=== PATIENT | female | born 1990 | race Caucasian/White ===

== ENCOUNTER 2020-06-30 00:45 | Emergency (ER) | payer OTHER ==
[~2020-06-30] VITALS: Ht 160 cm; Wt 64.4 kg
[2020-06-30 00:59] VITALS: BP 131/91
[2020-06-30 02:34] LABS: Hepatitis B Surface Antibody Negative
[2020-06-30 03:24] LABS: Hepatitis B Surface Antigen Negative (Negative)
== END 2020-06-30 04:56 | disposition home or self-care (01) ==
LOC: ER 00:48
DX: S69.92XA Unspecified injury of left wrist, hand and finger(s), initial encounter (principal); X58.XXXA Exposure to other specified factors, initial encounter; Y93.89 Activity, other specified; Y92.89 Other specified places as the place of occurrence of the external cause; Y99.8 Other external cause status
CPT/HCPCS: 36415; 86703; 86706; 86803; 87340

== ENCOUNTER 2022-04-05 00:06 | Emergency (ER) | payer MEDICAID, OTHER ==
[~2022-04-05] VITALS: Ht 160 cm; Wt 56.8 kg
[2022-04-05] MEDS ORDERED: ALPRAZolam 0.5 MG TAB PO ONE (00:45)
[2022-04-05 00:57] LABS: Basophils # (auto) 0.2 10 ^3/uL (0-0.2); Basophils % (auto) 2.7 % (0.0-2.0); Eosinophils # (auto) 0.1 10 ^3/uL (0-0.8); Eosinophils % (auto) 1.5 % (0.0-7.0); Hematocrit 39.9 % (36.0-46.0); Hemoglobin 13.4 g/dL (12.2-16.2); Lymphocytes % (auto) 14.2 % (10.0-50.0); Mean Corpuscular Hemoglobin 30.4 pg (28.0-32.0); Mean Corpuscular Hgb Conc. 33.6 g/dL (32.0-36.0); Mean Corpuscular Volume 90.4 fL (80.0-100.0); Monocytes # (auto) 0.3 10 ^3/uL (0-1.3); Monocytes % (auto) 4.6 % (0.0-12.0); Neutrophils # (auto) 5.7 10 ^3/uL (1.6-8.6); Nucleated Red Blood Cells % 0.1 %; Red Blood Cells 4.42 10^6/uL (4.0-5.20); Red Cell Distribution Width 12.7 % (11.8-14.3); White Blood Cell 7.4 10^3/uL (4.4-10.8)
[2022-04-05] MEDS ORDERED: IOHEXOL 350 MG/ML 100ML IJ ONE (01:01)
[2022-04-05 01:15] LABS: Albumin 4.4 g/dL (3.4-5.0); Potassium 4.2 mmol/L (3.5-5.1)
[2022-04-05 01:18] LABS: Bilirubin, Total 0.5 mg/dL (0.2-1.0); Total Protein 7.4 g/dL (6.4-8.2)
[2022-04-05 01:58] LABS: INR 1.05 (0.9-1.15)
[2022-04-05] MEDS ORDERED: DexAMETHasone SOD PHOS 10MG/1ML VIAL INJ IV ONE (03:45)
[2022-04-05] MEDS ORDERED: ONDANSETRON HCL 4 MG/2 ML VIAL IV ONE (03:45)
[2022-04-05] MEDS ORDERED: OXYCODONE W/ ACETAMINOPHEN 5/325MG TABLET PO ONE (03:45)
[2022-04-05 04:00] VITALS: BP 124/80
[2022-04-05] MEDS ORDERED: diazePAM 5 MG TAB PO ONE (04:00)
[2022-04-05] MEDS ORDERED: PERCOT PO (04:03)
[2022-04-05] MEDS ORDERED: PRED20TA2 PO (04:03)
[2022-04-05] MEDS ORDERED: DIAZ5TAB PO (04:03)
[2022-04-05] MEDS ORDERED: ONDA-144 PO (04:03)
== END 2022-04-05 04:34 | disposition home or self-care (01) ==
LOC: EEVIPCON 00:06 → ER 00:09
DX: R07.89 Other chest pain (principal); M54.9 Dorsalgia, unspecified; Z88.0 Allergy status to penicillin; Z20.822 Contact with and (suspected) exposure to COVID-19
CPT/HCPCS: 36415; 71275; 80053; 84443; 84484; 85025; 85610; 87426; 93005; 96374; 96375; 99285; J1100; J2405; Q9967

== ENCOUNTER 2022-08-25 05:14 | Inpatient (IN) | payer BC, MEDICAID ==
[~2022-08-25] VITALS: Ht 160 cm; Wt 55.0 kg
[~2022-08-25 05:14] MED LIST: AZITTAB PO; DIAZ5TAB PO; ONDA-144 PO; PERCOT PO; PRED20TA2 PO
[2022-08-25 05:33] LABS: Basophils # (auto) 0.1 10 ^3/uL (0-0.2); Basophils % (auto) 1.3 % (0.0-2.0); Eosinophils # (auto) 0.2 10 ^3/uL (0-0.8); Eosinophils % (auto) 2.1 % (0.0-7.0); Hematocrit 41.4 % (36.0-46.0); Hemoglobin 13.8 g/dL (12.2-16.2); Lymphocytes # (auto) 2.3 10 ^3/uL (0.4-5.4); Lymphocytes % (auto) 28.2 % (10.0-50.0); Mean Corpuscular Hemoglobin 29.9 pg (28.0-32.0); Mean Corpuscular Hgb Conc. 33.3 g/dL (32.0-36.0); Mean Corpuscular Volume 89.7 fL (80.0-100.0); Monocytes # (auto) 0.6 10 ^3/uL (0-1.3); Monocytes % (auto) 7.4 % (0.0-12.0); Neutrophils # (auto) 4.9 10 ^3/uL (1.6-8.6); Nucleated Red Blood Cells % 0.2 %; Red Blood Cells 4.61 10^6/uL (4.0-5.20); Red Cell Distribution Width 12.7 % (11.8-14.3)
[2022-08-25 05:58] LABS: Albumin 4.2 g/dL (3.4-5.0); Calcium 9.3 mg/dL (8.5-10.1); Potassium 3.7 mmol/L (3.5-5.1)
[2022-08-25 06:00] LABS: BUN/Creatinine Ratio 13.1
[2022-08-25 06:06] LABS: Bilirubin, Total 0.4 mg/dL (0.2-1.0); Total Protein 7.5 g/dL (6.4-8.2)
[2022-08-25] MEDS ORDERED: ONDANSETRON HCL 4 MG/2 ML VIAL IV PRN (09:45)
[2022-08-25] MEDS ORDERED: MORPHINE SULFATE INJ 2 MG/ml SYRG IV PRN (09:45)
[2022-08-25] MEDS ORDERED: NITROGLYCERIN 0.4 MG SL TAB SL PRN (09:45)
[2022-08-25] MEDS ORDERED: ACETAMINOPHEN 325 MG TAB PO PRN (09:45)
[2022-08-25] MEDS ORDERED: HYDROcodone-ACET 5/325MG TAB PO PRN (09:45)
[2022-08-25] MEDS ORDERED: DOCUSATE SOD 100 MG CAP PO PRN (09:45)
[2022-08-25] MEDS ORDERED: PANTOPRAZOLE 40 MG/10 ML VIAL INJ IV SCH (10:00)
[2022-08-25 10:43] LABS: Urine WBC None Seen /hpf (0 - 5)
[2022-08-25 11:07] LABS: Urine Bacteria NONE SEEN /hpf (None Seen); Urine Blood Negative /uL (Negative); Urine Specific Gravity 1.015 (1.001-1.035)
[2022-08-25] MEDS ORDERED: SODIUM CHLOR 0.9% PF (SALINE LOCK) 10ML VIAL/SYR IV SCH (14:00)
[2022-08-25 19:45] VITALS: BP 123/74
[2022-08-25] MEDS ORDERED: dilTIAZem 120MG ER CAP PO SCH (22:00)
[2022-08-26] MEDS ORDERED: ENOXAPARIN SOD 40 MG/0.4 ML SYRINGE SC SCH (10:00)
== END 2022-08-25 20:44 | disposition left against medical advice (07) | DRG 313 ==
LOC: ER 05:14 → EEVIPCON 05:14 → TELE 09:51
PROVIDERS: ADMIT Nurse Practitioner Family; ATTEND Nurse Practitioner Family
DX: R07.89 Other chest pain (principal); R09.02 Hypoxemia; R94.31 Abnormal electrocardiogram [ECG] [EKG]; Z88.0 Allergy status to penicillin; Z20.822 Contact with and (suspected) exposure to COVID-19; Z53.29 Procedure and treatment not carried out because of patient's decision for other reasons
CPT/HCPCS: 36415; 71045; 80053; 81001; 82553; 83735; 83880; 84443; 84484; 84702; 85025; 85379; 85652; 86141; 87426; 93005; 93306; 96374; 96375; C9113; G0378

== ENCOUNTER → 2022-11-07 | Outpatient (CLI) | payer BC ==
[~2022-11-07] MED LIST changes: -AZITTAB PO; -DIAZ5TAB PO; +NITR-87 PO; -ONDA-144 PO; -PERCOT PO; -PRED20TA2 PO
[2022-11-07 09:15] LABS: Basophils # (auto) 0 10 ^3/uL (0-0.2); Basophils % (auto) 0.7 % (0.0-2.0); Eosinophils # (auto) 0.1 10 ^3/uL (0-0.8); Hematocrit 43.9 % (36.0-46.0); Hemoglobin 14.9 g/dL (12.2-16.2); Lymphocytes # (auto) 1.6 10 ^3/uL (0.4-5.4); Lymphocytes % (auto) 25.4 % (10.0-50.0); Mean Corpuscular Hemoglobin 30.2 pg (28.0-32.0); Mean Corpuscular Hgb Conc. 33.9 g/dL (32.0-36.0); Monocytes # (auto) 0.5 10 ^3/uL (0-1.3); Monocytes % (auto) 7.6 % (0.0-12.0); Neutrophils # (auto) 3.9 10 ^3/uL (1.6-8.6); Neutrophils % (auto) 64.3 % (37.0-80.0); Nucleated Red Blood Cells % 0.1 %; Red Blood Cells 4.93 10^6/uL (4.0-5.20); Red Cell Distribution Width 12.5 % (11.8-14.3); White Blood Cell 6.1 10^3/uL (4.4-10.8)
[2022-11-07 10:17] LABS: Albumin 4.5 g/dL (3.4-5.0); Potassium 3.8 mmol/L (3.5-5.1)
[2022-11-07 10:37] LABS: BUN/Creatinine Ratio 9.6 (10.0-20.0); Bilirubin, Total 0.9 mg/dL (0.2-1.0); Calcium 9.3 mg/dL (8.5-10.1); Total Protein 8.2 g/dL (6.4-8.2)
== END | disposition home or self-care (01) ==
LOC: LAB 08:54
PROVIDERS: ATTEND Nurse Practitioner Family
DX: R07.9 Chest pain, unspecified (principal); F41.9 Anxiety disorder, unspecified; N92.6 Irregular menstruation, unspecified
CPT/HCPCS: 36415; 80053; 80061; 82306; 84439; 84443; 85025

== ENCOUNTER → 2022-12-11 | Outpatient (CLI) | payer BC ==
[~2022-12-11] MED LIST changes: +AZITTAB PO
[2022-12-11 10:27] LABS: Follicle Stimulating Hormone 6.44 IU/L (SEE BELOW); Leuteinizing Hormone 6.3 IU/L
[2022-12-11 12:55] LABS: Hepatitis A Ab IgM Negative; Hepatitis B Core IgM Negative
[2022-12-12 07:07] LABS: RPR Non Reactive (Non Reactive)
== END | disposition home or self-care (01) ==
LOC: LAB 08:44
PROVIDERS: ATTEND Nurse Practitioner Family
DX: N92.6 Irregular menstruation, unspecified (principal); Z20.2 Contact with and (suspected) exposure to infections with a predominantly sexual mode of transmission
CPT/HCPCS: 36415; 82672; 83001; 83002; 84144; 84403; 86592; 86703; 86705; 86709; 86803; 87340

== ENCOUNTER → 2023-01-03 | Outpatient (CLI) | payer BC | END | disposition home or self-care (01) | LOC: LAB 08:19 | PROVIDERS: ATTEND Obstetrics & Gynecology | DX: Z01.419 Encounter for gynecological examination (general) (routine) without abnormal findings (principal) | CPT/HCPCS: 87517 ==

== ENCOUNTER 2023-04-21 04:29 | Emergency (ER) | payer BC, MEDICAID, OTHER ==
[~2023-04-21] VITALS: Ht 160 cm; Wt 59.0 kg
[2023-04-21] MEDS ORDERED: DICL1GEL73 TD (04:36)
[2023-04-21] MEDS ORDERED: METH-1181 PO (04:36)
[2023-04-21] MEDS ORDERED: KETOROLAC TROMETH 30 MG/ML 1ML VIAL IV ONE (04:45)
[2023-04-21] MEDS ORDERED: DexAMETHasone SOD PHOS 10MG/1ML VIAL INJ IM ONE (04:45)
[2023-04-21] MEDS ORDERED: KETOROLAC TROMETH 60MG/2ML VIAL IM ONE (05:00)
[2023-04-21 05:44] VITALS: BP 127/92; PULSE 74; RESP 16; TEMP 97.6; O2SAT 99
== END 2023-04-21 05:50 | disposition home or self-care (01) ==
LOC: ER 04:29
DX: S16.1XXA Strain of muscle, fascia and tendon at neck level, initial encounter (principal); Z88.0 Allergy status to penicillin; Z79.899 Other long term (current) drug therapy; X58.XXXA Exposure to other specified factors, initial encounter; Y93.89 Activity, other specified; Y92.89 Other specified places as the place of occurrence of the external cause; Y99.8 Other external cause status
CPT/HCPCS: 96372; 99284; J1100; J1885

== ENCOUNTER → 2023-12-10 | Outpatient (CLI) | payer BC ==
[~2023-12-10] MED LIST changes: +DICL1GEL73 TD; +FLUO0.054 TOP; +METH-1181 PO
[2023-12-10 06:40] LABS: Basophils # (auto) 0.1 10 ^3/uL (0-0.2); Eosinophils # (auto) 0.2 10 ^3/uL (0-0.8); Eosinophils % (auto) 2.7 % (0.0-7.0); Hematocrit 44.5 % (36.0-46.0); Lymphocytes # (auto) 2.7 10 ^3/uL (0.4-5.4); Lymphocytes % (auto) 35.5 % (10.0-50.0); Mean Corpuscular Hemoglobin 30.3 pg (28.0-32.0); Mean Corpuscular Hgb Conc. 33.8 g/dL (32.0-36.0); Mean Corpuscular Volume 89.7 fL (80.0-100.0); Monocytes # (auto) 0.7 10 ^3/uL (0-1.3); Monocytes % (auto) 8.5 % (0.0-12.0); Neutrophils % (auto) 52.3 % (37.0-80.0); Red Blood Cells 4.96 10^6/uL (4.0-5.20); White Blood Cell 7.7 10^3/uL (4.4-10.8)
[2023-12-10 07:47] LABS: Alanine Aminotransferase 15 U/L (7-40); Alkaline Phosphatase 49 U/L (46-116); Anion Gap 7 (5-15); Aspartate Aminotransferase < 8 U/L (13-40); BUN/Creatinine Ratio 6.5 (10.0-20.0); Bilirubin, Total 0.6 mg/dL (0.2-1.0); Blood Urea Nitrogen 7 mg/dL (9-23); Calcium 10.2 mg/dL (8.5-10.1); Carbon Dioxide 26 mmol/L (20-30); Chloride 108 mmol/L (98-107); Cholesterol 154 mg/dL (< 200); Glucose 91 mg/dL (74-106); HDL Cholesterol 46 mg/dL (40-59); LDL Cholesterol 98 mg/dL (< 100); Potassium 3.5 mmol/L (3.5-5.1); Sodium 141 mmol/L (136-145); Total Protein 7.6 g/dL (5.7-8.2); Triglycerides 164 mg/dL (< 150)
== END | disposition home or self-care (01) ==
LOC: LAB 06:14
PROVIDERS: ATTEND Nurse Practitioner Family
DX: F41.9 Anxiety disorder, unspecified (principal); R07.9 Chest pain, unspecified
CPT/HCPCS: 36415; 80053; 80061; 83735; 84439; 84443; 85025

== ENCOUNTER 2024-07-31 04:24 | Inpatient (IN) | payer BC, MEDICAID, OTHER ==
[~2024-07-31] VITALS: Ht 160 cm; Wt 65.4 kg
[~2024-07-31 04:24] MED LIST changes: +CRIS2OIN EX
--- NOTE | 2024-07-31 04:34 | ED.PDOC ---
History of Present Illness HPI Comments 33 year old female presents to the ED with a chief complaint of back pain onset 1 week. Patient states she has chronic back pain but noticed it worsen the past week. She has taken Ibuprofen with no improvement of symptoms. Patient also noticed left lower extremity with tingling/numbness sensation as well as pain. Denies any PMHx as well as injury, trauma, fall, chest pain, shortness of breath, dizziness, blurry vision. No other symptoms or modifying factors present at this time. Time Seen by MD: 04:30 Primary Care Provider: Krista Reviewed Notes: Medications, Allergies Allergies: Coded Allergies: Penicillins (Verified Allergy, Unknown, 08/25/22) Home Meds Active Scripts Crisaborole (Eucrisa) 2 % Oin, 2 % EX BID PRN, #30 OIN 1 Refill Prov:KATIUSKA BAILEYP 04/22/24 Fluocinonide (Fluocinonide) 0.05 % Oin, 1 APPLIC TOP BID, #60 GRAMS Prov:KATIUSKA BAILEYP 08/08/23 Azithromycin (Zithromax Z-Farzad) 250 Mg Tab, 250 MG PO DAILY for 5 Days, #5 TAB Prov:KATIUSKA BAILEYP 06/21/23 Methocarbamol (Methocarbamol) 500 Mg Tab, 500 MG PO TID PRN for 30 Days, #90 TAB Prov:EILEEN CUTLER CHANNEL DEVELOPMENT DIRECTOR 04/21/23 Diclofenac Sodium (Topical) (Diclofenac Sodium) 1 % Gel, 1 % TD QID PRN for 30 Days, #1 GEL 4 Refills Prov:EILEEN CUTLERP 04/21/23 Azithromycin (Zithromax Z-Farzad) 250 Mg Tab, 250 MG PO DAILY for 5 Days, #6 TAB Prov:ANTONIO JACKSON DO 11/25/22 Nitrofurantoin Monohydrate Mac (Macrobid) 100 Mg Cap, 100 MG PO BID for 7 Days, #14 CAP 0 Refills Prov:JACKLYN PITTMAN 10/26/22 Information Source: Patient Mode of Arrival: Ambulatory Severity: Moderate Timing: Weeks Duration: Since onset Prehospital treatment: Pain Meds (Ibuprofen) Past Medical History PAST MEDICAL HISTORY: Denies Surgical History: Denies all surgeries 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 Family History Family History: Reviewed,noncontributory to illness, No family hx of Cancer, No family hx of DM, No family hx of Heart malini, No family hx of HTN, No family hx ofKidney malini, No family hx of Liver malini, No family hx of Lung malini, No family hx of Stroke Family History (Other): Family history of relative with syncope and diagnosis of PE age 33 Social History Smoker: Non-Smoker Alcohol: Rarely Drugs: Denies Drug Use Lives In: Home Constitutional: denies: chills, diaphoresis, fatigue, fever, malaise, sweats, weakness, others EENTM: denies: blurred vision, double vision, ear bleeding, ear discharge, ear drainage, ear pain, ear ringing, eye pain, eye redness, hearing loss, mouth pain, mouth swelling, nasal discharge, nose bleeding, nose congestion, nose pain, photophobia, tearing, throat pain, throat swelling, voice changes, others Respiratory: denies: cough, hemoptysis, orthopnea, SOB at rest, shortness of breath, SOB with excertion, stridor, wheezing, others Cardiovascular: denies: chest pain, dizzy spells, diaphoresis, Dyspnea on exertion, edema, irregular heart beat, left arm pain, lightheadedness, palpitations, PND, syncope, others Gastrointestinal: denies: abdomen distended, abdominal pain, blood streaked bowels, constipated, diarrhea, dysphagia, difficulty swallowing, hematemesis, melena, nausea, poor appetite, poor fluid intake, rectal bleeding, rectal pain, vomiting, others Genitourinary: denies: abnormal vagina bleeding, burning, dyspareunia, dysuria, flank pain, frequency, hematuria, incontinence, pain, , vagina discharge, urgency, others Neurological: denies: dizziness, fainting, headache, left sided numbness, left sided weakness, numbness, paresthesia, pre-existing deficit, right sided numbness, right sided weakness, seizure, speech problems, tingling, tremors, weakness, others Musculoskeletal: reports: back pain, others (LLE with numbness/tingling, pain); denies: gout, joint pain, joint swelling, muscle pain, muscle stiffness, neck pain Integumetry: denies: bruises, change in color, change in hair/nails, dryness, laceration, lesions, lumps, rash, wounds, others Allergic/Immunocompromised: denies: Difficulty Healing, Frequent Infections, Hives, Itching, others Hematologic/Lymphatic: denies: anemia, blood clots, easy bleeding, easy bruising, swollen glands, others Endocrine: denies: excessive hunger, excessive sweating, excessive thirst, excessive urination, flushing, intolerance to cold, intolerance to heat, unexplained weight gain, unexplained weight loss, others Psychiatric: denies: anxiety, bipolar disorder, depression, hopeless, panic disorder, schizophrenia, sleepless, suicidal, others All Other Systems: Reviewed and Negative Physical Exam General Appearance: No Apparent Distress, Normal HEENT: Normal ENT Inspection, Pharynx Normal, TMs Normal Neck: Full Range of Motion, Non-Tender, Normal, Normal Inspection Respiratory: Chest Non-Tender, Lungs Clear, No Accessory Muscle Use, No Respiratory Distress, Normal Breath Sounds Cardiovascular: No Edema, No JVD, No Murmur, No Gallop, Normal Peripheral Pulses, Regular Rate/Rhythm Breast Exam: Deferred Gastrointestinal: No Organomegaly, Non Tender, No Pulsatile Mass, Normal Bowel Sounds, Soft Genitalia: Deferred Pelvic: Deferred Rectal: Deferred Extremities: No calf tenderness, Normal capillary refill, Normal inspection, Normal range of motion, Non-tender, No pedal edema Musculoskeletal : Apperance: Normal Neurologic: Alert, commodity supervisor II-XII nml as Tested, No Motor Deficits, Normal Affect, Normal Mood, No Sensory Deficits Cerebellar Function: Normal Reflexes: Normal Skin: Dry, Normal Color, Warm Lymphatic: No Adenopathy Was a procedure done? Was a procedure done?: No Differential Dx Considerations may include: Lumbar strain, cauda equina, spinal stenosis X-Ray, Labs, Meds, VS Vital Signs Date Time Temp Pulse Resp B/P (MAP) Pulse Ox O2 Delivery O2 Flow Rate FiO2 07/31/24 05:04 98.4 102 20 143/90 (107) 99 Lab Test 07/31/24 04:51 07/31/24 04:31 Range/Units White Blood Count 7.3 4.4-10.8 10^3/uL Red Blood Count 4.95 4.0-5.20 10^6/uL Hemoglobin 15.0 12.2-16.2 g/dL Hematocrit 43.6 36.0-46.0 % Mean Corpuscular Volume 88.0 80.0-100.0 fL Mean Corpuscular Hemoglobin 30.2 28.0-32.0 pg Mean Corpuscular Hemoglobin Concent 34.3 32.0-36.0 g/dL Red Cell Distribution Width 12.8 11.8-14.3 % Platelet Count 285 140-450 10^3/uL Mean Platelet Volume 7.7 6.9-10.8 fL Neutrophils (%) (Auto) 66.1 37.0-80.0 % Lymphocytes (%) (Auto) 23.8 10.0-50.0 % Monocytes (%) (Auto) 6.2 0.0-12.0 % Eosinophils (%) (Auto) 3.0 0.0-7.0 % Basophils (%) (Auto) 0.9 0.0-2.0 % Neutrophils # (Auto) 4.8 1.6-8.6 10 ^3/uL Lymphocytes # (Auto) 1.7 0.4-5.4 10 ^3/uL Monocytes # (Auto) 0.5 0-1.3 10 ^3/uL Eosinophils # (Auto) 0.2 0-0.8 10 ^3/uL Basophils # (Auto) 0.1 0-0.2 10 ^3/uL Nucleated Red Blood Cells 0.1 % Sodium Level 139 136-145 mmol/L Potassium Level 3.8 3.5-5.1 mmol/L Chloride Level 107 98-107 mmol/L Carbon Dioxide Level 24 20-31 mmol/L Anion Gap 8 5-15 Blood Urea Nitrogen 15 9-23 mg/dL Creatinine 1.01 0.550-1.02 mg/dL Glomerular Filtration Rate Calc 76 >90 mL/min BUN/Creatinine Ratio 14.9 10.0-20.0 Serum Glucose 98 74-106 mg/dL Calcium Level 10.1 8.7-10.4 mg/dL Urine Color Light-yellow Yellow Urine Clarity Clear Clear Urine pH 6.0 5.0-9.0 Urine Specific [place] 1.019 1.001-1.035 Urine Protein Negative Negative Urine Ketones Negative Negative Urine Blood Negative Negative /uL Urine Nitrite Negative Negative Urine Bilirubin Negative Negative Urine Urobilinogen Normal Negative mg/dL Urine Leukocyte Esterase Trace Negative /uL Urine RBC 1 0 - 4 /hpf Urine Microscopic WBC 6 H 0-5 /HPF Urine Squamous Epithelial Cells Few <5 /hpf Urine Bacteria Mod H None Seen /hpf Urine Hyaline Casts Few 0 - 2 /lpf Urine Glucose Normal Normal mg/dL Urine Test Negative Negative Current Medications Medications (Trade) Dose Ordered Sig/Nadira Route Start Time Stop Time Status Last Admin Sodium Chloride 1,000 ml @ 1,000 mls/hr Q1H ONCE IV 07/31/24 04:30 07/31/24 05:29 DC 07/31/24 05:03 Ketorolac Tromethamine (Toradol Injection) 15 mg ONCE ONCE IV 07/31/24 04:30 07/31/24 04:31 DC 07/31/24 05:03 [place] [id number] Ph: [phone] DIAGNOSTIC IMAGING Diagnostic Imaging Report : [id number] Signed PATIENT: GIFTY STARK ACCT: [id number] UNIT: [id number] : 1990 LOC: ER ROOM / BED: / AGE / SEX: 33 / F ADM STATUS: REG ER SERVICE [id number] ORDERING PHYSICIAN: HELGA SHIN MD PROCEDURE(s): LS2CT - LS SPINE WO CONTRAST REASON: lower back pain with leg weakness ORDER NUMBER(s): [id number], ACCESSION NUMBER(s): [id number] CLINICAL INDICATION: 33 years old, Female; lower back pain with leg weakness. TECHNIQUE: CT of the lumbar spine was performed without intravenous contrast. Sagittal and coronal reformatted images are provided. All CT scans at this medical facility are performed using dose modulation techniques as appropriate to a performed exam including the following: Automated exposure control was utilized; adjustment of the MA and/or KV according to patient size; and use of iterative reconstruction technique. COMPARISON: None CT Dose: CTDI volume is 12.1 mGy. Dose-length product is 447.7 mGy*cm FINDINGS: There is levocurvature of the lumbar spine centered at L2-3. The alignment of the lumbar spine is maintained. No acute fracture. The vertebral bodies are normal in height. The intervertebral disc spaces are maintained. There is no evidence of spinal canal or neural foraminal stenosis. The prevertebral soft tissues are unremarkable. Paraspinal muscles are also within normal limits. IMPRESSION: 1. No acute fracture or malalignment in the lumbar spine. ATED BY: DEANDRE CROWELL MD DICTATED DATE/TIME: 07/31/24526 SIGNED BY: DEANDRE CROWELL MD SIGNED DATE/TIME: 07/31/24526 CC: Time of 1ST Reevaluation: 05:00 Reevaluation 1ST: Unchanged Patient Education/Counseling: Diagnosis, Treatment, Prognosis Family Education/Counseling: No Family Present Departure 1 Departure Time of Disposition: 05:45 (Patient with lower back pain and muscle weakness. We will admit patient for MRI and expert consultation.) Impression: Primary Impression: Lumbar radiculopathy Additional Impression: Right leg weakness Disposition: ADMITTED INPATIENT Admit to: Med Surg Condition: Serious Critical Care Note Critical Care Time?: No Stability Stability form required: No I personally scribed for HELGA SHIN MD ([email or web address]) on 07/31/24 at 04:34. Elect ronically submitted by Katie Patel ([email or web address]). I personally scribed for HELGA SHIN MD ([email or web address]) on 07/31/24 at 05:25. Electronically submitted by Katie Patel ([email or web address]). I personally scribed for HELGA SHIN MD ([email or web address]) on 07/31/24 at 05:31. Electronically submitted by Katie Patel ([email or web address]). HELGA SHIN MD Jul 31, 2024 04:34
[2024-07-31 04:53] LABS: Urine Bacteria MOD /hpf (None Seen); Urine Blood Negative /uL (Negative); Urine Clarity Clear (Clear); Urine Color Light-Yellow (Yellow); Urine Hyaline Cast FEW /lpf (0 - 2); Urine Protein, UAD Negative (Negative); Urine Specific Gravity 1.019 (1.001-1.035); Urine Squamous Epithelial Cell FEW /hpf (<5); Urine Urobilinogen Normal (Negative); Urine WBC 6 /HPF (0-5)
[2024-07-31] MEDS: SODIUM CHLORIDE 0.9% 1,000 ML IV ONE (05:03)
[2024-07-31] MEDS: KETOROLAC TROMETH 30 MG/ML 1ML VIAL IV ONE (05:03)
[2024-07-31] MEDS: diazePAM 2 MG TAB PO ONE (05:03)
[2024-07-31 05:04] VITALS: BP 143/90; PULSE 102; RESP 20; O2SAT 99
[2024-07-31 05:04] LABS: Basophils # (auto) 0.1 10 ^3/uL (0-0.2); Basophils % (auto) 0.9 % (0.0-2.0); Eosinophils # (auto) 0.2 10 ^3/uL (0-0.8); Hematocrit 43.6 % (36.0-46.0); Lymphocytes # (auto) 1.7 10 ^3/uL (0.4-5.4); Lymphocytes % (auto) 23.8 % (10.0-50.0); Mean Corpuscular Hemoglobin 30.2 pg (28.0-32.0); Mean Corpuscular Hgb Conc. 34.3 g/dL (32.0-36.0); Monocytes # (auto) 0.5 10 ^3/uL (0-1.3); Monocytes % (auto) 6.2 % (0.0-12.0); Neutrophils # (auto) 4.8 10 ^3/uL (1.6-8.6); Neutrophils % (auto) 66.1 % (37.0-80.0); Nucleated Red Blood Cells % 0.1 %; Platelet Count (auto) 285 10^3/uL (140-450); Red Blood Cells 4.95 10^6/uL (4.0-5.20); Red Cell Distribution Width 12.8 % (11.8-14.3); White Blood Cell 7.3 10^3/uL (4.4-10.8)
[2024-07-31 05:14] LABS: Anion Gap 8 (5-15); Carbon Dioxide 24 mmol/L (20-31); Potassium 3.8 mmol/L (3.5-5.1); Sodium 139 mmol/L (136-145)
[2024-07-31 05:15] LABS: Calcium 10.1 mg/dL (8.7-10.4)
[2024-07-31 05:20] LABS: BUN/Creatinine Ratio 14.9 (10.0-20.0); Blood Urea Nitrogen 15 mg/dL (9-23); Chloride 107 mmol/L (98-107); Glucose 98 mg/dL (74-106)
--- NOTE | 2024-07-31 05:29 | DVH ---
CLINICAL INDICATION: 33 years old, Female; lower back pain with leg weakness. TECHNIQUE: CT of the lumbar spine was performed without intravenous contrast. Sagittal and coronal re formatted images are provided. All CT scans at this medical facility are performed using dose modula tion techniques as appropriate to a performed exam including the following: Automated exposure contro l was utilized; adjustment of the MA and/or KV according to patient size; and use of iterative recons truction technique. COMPARISON: None CT Dose: CTDI volume is 12.1 mGy. Dose-length product is 447.7 mGy*cm FINDINGS: There is levocurvature of the lumbar spine centered at L2-3. The alignment of the lumbar spine is korey ntained. No acute fracture. The vertebral bodies are normal in height. The intervertebral disc spaces are maintained. There is no evidence of spinal canal or neural foraminal stenosis. The prevertebral soft tissues are unremarkable. Paraspinal muscles are also within normal limits. IMPRESSION: 1. No acute fracture or malalignment in the lumbar spine.
--- NOTE | 2024-07-31 07:08 | DVHHP2 ---
History of Present Illness Reason for Visit: Low back pain History of Present Illness 33-year-old female past medical history back pain that is chronic and scoliosis no surgical history chief complaint patient states that she has been having low back pain he has been going on for a week. She did state she worked yesterday and she had to take gentle moves with her work due to the pain. Patient states he has paraspinal pain that radiates to the left-sided down her legs worse she has left leg numbness and tingling she also states some waistline heaviness. Patient states that she tends to have her back flare up over the years. With this time is so severe caused him some discomfort. She denies any bowel incontinence no weakness. She does state she has a limp when she was walking. No chest pain no shortness with the breath. When evaluating patient's labs and imaging Valium was given Toradol normal saline CBC was unremarkable BNP unremarkable UA has small amount of bacteria. CT scan of the L-spine is unremarkable. With these findings we will admit patient for further workup and care Past Medical History Chronic back pain and scoliosis Past Surgical History No surgical history Past Social History The patient lives at home, denies smoking, alcohol or illicit drugs abuse. Review of Systems Constitutional: No: Fever, Chills, Sweats, Weakness, Malaise, Other Eyes: No: Pain, Vision change, Conjunctivae inflammation, Eyelid inflammation, Other, Redness ENT: No: Ear pain, Ear discharge, Nose pain, Nose discharge, Nose congestion, Mouth pain, Mouth swelling, Throat pain, Throat swelling, Other Respiratory: No: Cough, Dry, Shortness of breath, SOB with excertion, Wheezing, Hemoptysis, Pleuritic Pain, Sputum, Wheezing, Other Cardiovascular: No: Chest Pain, Palpitations, Orthopnea, Paroxysmal Noc. Dyspnea, Edema, Lt Headedness, Other Gastrointestinal: No: Nausea, Vomiting, Abdominal Pain, Diarrhea, Constipation, Melena, Hematochezia, Other Genitourinary: No Dysuria, No Frequency, No Incontinence, No Hematuria, No Retention, No Other Musculoskeletal: back pain, leg pain; No: other, neck pain, shoulder pain, arm pain, hand pain, foot pain Skin: No: Rash, Lesions, Jaundice, Bruising, Other Neurological: Weakness (Left leg), Numbness; No: Incoordination, Change in spe ech, Confusion, Seizures, Other Allergies: Coded Allergies: Penicillins (Verified Allergy, Unknown, 08/25/22) Exam Vital Signs Vital Signs Date Time Temp Pulse Resp B/P (MAP) Pulse Ox O2 Delivery O2 Flow Rate FiO2 07/31/24 05:04 98.4 102 20 143/90 (107) 99 General Appearance: Alert, Oriented X3, Cooperative, No acute distress HEENT: Atraumatic, PERRLA, EOMI, Mucous membr. moist/pink Respiratory: Clear to auscultation, Normal air movement Cardiovascular: Regular rate, Normal S1, Normal S2, No murmurs Abdominal: Normal bowel sounds, Soft, No tenderness, No hepatospenomegaly, No masses Extremities: No clubbing, No cyanosis, No edema, Normal pulses, No tenderness /swelling Skin: No rashes, No breakdown, No significant lesion Neuro: Normal gait (Mild limp with the ambulation), Strength at 5/5 X4 ext, Normal tone, Sensation intact, Other (Paraspinal lumbar tenderness mild swelling on left paraspinal no bone deformity seen no skin color changes) Psych/Mental Status: Mental status NL, Mood NL Labs/Xrays CT scan L-spine unremarkable MRI L-spine order to follow up results I reviewed labs, imaging CT scan abdomen pelvis, EKG and all diagnostic studies on this patient from ED records and the medical chart Labs Test 07/31/24 04:51 07/31/24 04:31 Range/Units White Blood Count 7.3 4.4-10.8 10^3/uL Red Blood Count 4.95 4.0-5.20 10^6/uL Hemoglobin 15.0 12.2-16.2 g/dL Hematocrit 43.6 36.0-46.0 % Mean Corpuscular Volume 88.0 80.0-100.0 fL Mean Corpuscular Hemoglobin 30.2 28.0-32.0 pg Mean Corpuscular Hemoglobin Concent 34.3 32.0-36.0 g/dL Red Cell Distribution Width 12.8 11.8-14.3 % Platelet Count 285 140-450 10^3/uL Mean Platelet Volume 7.7 6.9-10.8 fL Neutrophils (%) (Auto) 66.1 37.0-80.0 % Lymphocytes (%) (Auto) 23.8 10.0-50.0 % Monocytes (%) (Auto) 6.2 0.0-12.0 % Eosinophils (%) (Auto) 3.0 0.0-7.0 % Basophils (%) (Auto) 0.9 0.0-2.0 % Neutrophils # (Auto) 4.8 1.6-8.6 10 ^3/uL Lymphocytes # (Auto) 1.7 0.4-5.4 10 ^3/uL Monocytes # (Auto) 0.5 0-1.3 10 ^3/uL Eosinophils # (Auto) 0.2 0-0.8 10 ^3/uL Basophils # (Auto) 0.1 0-0.2 10 ^3/uL Nucleated Red Blood Cells 0.1 % Sodium Level 139 136-145 mmol/L Potassium Level 3.8 3.5-5.1 mmol/L Chloride Level 107 98-107 mmol/L Carbon Dioxide Level 24 20-31 mmol/L Anion Gap 8 5-15 Blood Urea Nitrogen 15 9-23 mg/dL Creatinine 1.01 0.550-1.02 mg/dL Glomerular Filtration Rate Calc 76 >90 mL/min BUN/Creatinine Ratio 14.9 10.0-20.0 Serum Glucose 98 74-106 mg/dL Calcium Level 10.1 8.7-10.4 mg/dL Urine Color Light-yellow Yellow Urine Clarity Clear Clear Urine pH 6.0 5.0-9.0 Urine Specific [place] 1.019 1.001-1.035 Urine Protein Negative Negative Urine Ketones Negative Negative Urine Blood Negative Negative /uL Urine Nitrite Negative Negative Urine Bilirubin Negative Negative Urine Urobilinogen Normal Negative mg/dL Urine Leukocyte Esterase Trace Negative /uL Urine RBC 1 0 - 4 /hpf Urine Microscopic WBC 6 H 0-5 /HPF Urine Squamous Epithelial Cells Few <5 /hpf Urine Bacteria Mod H None Seen /hpf Urine Hyaline Casts Few 0 - 2 /lpf Urine Glucose Normal Normal mg/dL Urine Test Negative Negative Assessment/Plan Assessment/Plan acute on chronic intractable low back pain with numbness and tingling CT of the L-spine unremarkable Order morphine as needed for pain Order neuro checks every 4 hours Can consider ortho spine consult Acute cystitis found in urine Order ceftriaxone for now fen/ppx diet ivf scd no gi ppx since no hx of gerds or gi bleed plan admit to medicine Plan discussed with: Patient Date of Service: Jul 31, 2024 Billing Provider: SHERMAN KEATING DNP Common Visit Codes: 66258-[id number] INP/OBS CARE (HIGH) SHERMAN KEATING DNP Jul 31, 2024 07:08
[2024-07-31] MEDS ORDERED: SODIUM CHLORIDE 0.9% 1,000 ML IV SCH (08:00)
[2024-07-31] MEDS ORDERED: DOCUSATE SOD 100 MG CAP PO PRN (08:00)
[2024-07-31] MEDS ORDERED: NITROGLYCERIN 0.4 MG SL TAB SL PRN (08:00)
[2024-07-31] MEDS ORDERED: MORPHINE SULFATE INJ 2 MG/ml SYRG IV PRN (08:00)
[2024-07-31] MEDS ORDERED: ONDANSETRON HCL 4 MG/2 ML VIAL IV PRN (08:00)
--- NOTE | 2024-07-31 08:39 | DVH ---
CLINICAL INFORMATION: 33 years old, Female; lower back pain with leg weakness. TECHNIQUE: Multisequence multiplanar MRI images of the lumbar spine were obtained without contrast. COMPARISON: None INTERPRETATION: Vertebral body alignment is within normal limits. Vertebral body heights are mainta ined. Posterior elements are intact. No focal suspicious marrow signal abnormality. Visualized sp inal cord and cauda equina are within normal limits. The conus medullaris is appropriate in signal a t the T12 level. Paraspinal soft tissues are unremarkable. L1-L2: Mild disc desiccation. No significant spinal canal or neural foraminal stenosis. L2-L3: No significant disc/facet abnormality. No significant spinal canal or neural foraminal stenos is. L3-L4: No significant disc bulge or spinal canal stenosis. Facet hypertrophy with [id number] bilateral neural foraminal stenoses. L4-L5: Mild disc bulge mildly flattening the ventral aspect of the thecal sac. No significant spinal canal stenosis. Facet hypertrophy with mild bilateral neural foraminal stenoses. L5-S1: No significant disc/facet abnormality. No significant spinal canal or neural foraminal stenos is. IMPRESSION: 1. No evidence of acute fracture or spondylolisthesis. 2. Mild degenerative disc disease and facet disease in the lumbar spine as described above.
[2024-08-01] MEDS ORDERED: CYCL-839 PO (03:25)
== END 2024-07-31 08:32 | disposition left against medical advice (07) | DRG 552 ==
LOC: ER 04:24 → EEVIPCON 04:24 → OVERFLOW 07:49
PROVIDERS: ADMIT Nurse Practitioner Family; ATTEND Nurse Practitioner Family
DX: M54.16 Radiculopathy, lumbar region (principal); N30.00 Acute cystitis without hematuria; G89.29 Other chronic pain; Z53.29 Procedure and treatment not carried out because of patient's decision for other reasons; Z88.0 Allergy status to penicillin
CPT/HCPCS: 36415; 72131; 72148; 80048; 81001; 81025; 85025; 96361; 96374; G0378; J1885

== ENCOUNTER 2024-12-14 20:36 | Emergency (ER) | payer BC ==
[~2024-12-14] VITALS: Ht 160 cm; Wt 65.0 kg
[~2024-12-14 20:36] MED LIST changes: +CYCL-839 PO
[2024-12-14 20:48] VITALS: BP 135/91; PULSE 74; RESP 16; TEMP 98.2; O2SAT 98
--- NOTE | 2024-12-14 21:01 | ED.PDOC ---
General HPI Comments 33 y.o female presents to the ED for a chief complaint of right sided abdominal pain x 2 days that is now radiating to her right pelvic region. Patient reports pain is constant and now has difficulty urinating. Patient has a history of kidney stones. She denies any fever, chills, burning on urination, nausea, vomiting, fever, chills, or diarrhea. Vital signs were stable at arrival. Chief Complaint: Pelvic Pain Time Seen by MD: 20:48 Primary Care Provider: Unk Reviewed notes: Nurses Notes, Medications, Allergies Allergies: Coded Allergies: Penicillins (Verified Allergy, Unknown, 08/25/22) Home Meds Active Scripts Cyclobenzaprine Hcl (Cyclobenzaprine Hcl) 10 Mg Tab, 10 MG PO TID PRN for 7 Day s, #21 TAB Prov:HELGA SHIN MD 08/01/24 Crisaborole (Eucrisa) 2 % Oin, 2 % EX BID PRN, #30 OIN 1 Refill Prov:KATIUSKA BAILEY [employer]LECT[employer] LINE SPLICER 04/22/24 Fluocinonide (Fluocinonide) 0.05 % Oin, 1 APPLIC TOP BID, #60 GRAMS Prov:KATIUSKA BAILEYP 08/08/23 Azithromycin (Zithromax Z-Farzad) 250 Mg Tab, 250 MG PO DAILY for 5 Days, #5 TAB Prov:KATIUSKA BAILEYP 06/21/23 Methocarbamol (Methocarbamol) 500 Mg Tab, 500 MG PO TID PRN for 30 Days, #90 TAB Prov:EILEEN CUTLER [employer]LECT[employer] SPLICER 04/21/23 Diclofenac Sodium (Topical) (Diclofenac Sodium) 1 % Gel, 1 % TD QID PRN for 30 Days, #1 GEL 4 Refills Prov:EILEEN CUTLER [employer] SPLICER 04/21/23 Azithromycin (Zithromax Z-Farzad) 250 Mg Tab, 250 MG PO DAILY for 5 Days, #6 TAB Prov:ANTONIO JACKSON DO 11/25/22 Nitrofurantoin Monohydrate Mac (Macrobid) 100 Mg Cap, 100 MG PO BID for 7 Days, #14 CAP 0 Refills Prov:JACKLYN PITTMAN 10/26/22 Information Source: Patient Mode of Arrival: Ambulatory Severity: Moderate Timing: Days (2) Duration: Since onset Onset: Spontaneous Symptoms: None History of: Kidney stone Location: Abdomen associated signs and symptoms: Abdominal Pain Past Medical History PAST MEDICAL HISTORY: Kidney Stones Surgical History: Denies all surgeries NET PROGRAMMER History: No Pertinent NET PROGRAMMER History Family History Family History: Reviewed,noncontributory to illness, No family hx of Cancer, No family hx of DM, No family hx of Heart malini, No family hx of HTN, No family hx ofKidney malini, No family hx of Liver malini, No family hx of Lung malini, No family hx of Stroke Family History (Other): Family history of relative with syncope and diagnosis of PE age 33 Social History Smoker: Non-Smoker Alcohol: Rarely Drugs: Denies Drug Use Lives In: Home Constitutional: denies: chills, diaphoresis, fatigue, fever, malaise, sweats, weakness, others EENTM: denies: blurred vision, double vision, ear bleeding, ear discharge, ear drainage, ear pain, ear ringing, eye pain, eye redness, hearing loss, mouth pain, mouth swelling, nasal discharge, nose bleeding, nose congestion, nose pain, photophobia, tearing, throat pain, throat swelling, voice changes, others Respiratory: denies: cough, hemoptysis, orthopnea, SOB at rest, shortness of breath, SOB with excertion, stridor, wheezing, others Cardiovascular: denies: chest pain, dizzy spells, diaphoresis, Dyspnea on exertion, edema, irregular heart beat, left arm pain, lightheadedness, palpitat ions, PND, syncope, others Gastrointestinal: reports: abdominal pain; denies: abdomen distended, blood streaked bowels, constipated, diarrhea, dysphagia, difficulty swallowing, hematemesis, melena, nausea, poor appetite, poor fluid intake, rectal bleeding, rectal pain, vomiting, others Genitourinary: reports: pain; denies: abnormal vagina bleeding, burning, dyspareunia, dysuria, flank pain, frequency, hematuria, incontinence, , vagina discharge, urgency, others Neurological: denies: dizziness, fainting, headache, left sided numbness, left sided weakness, numbness, paresthesia, pre-existing deficit, right sided numbness, right sided weakness, seizure, speech problems, tingling, tremors, weakness, others Musculoskeletal: denies: back pain, gout, joint pain, joint swelling, muscle pain, muscle stiffness, neck pain, others Integumetry: denies: bruises, change in color, change in hair/nails, dryness, laceration, lesions, lumps, rash, wounds, others Allergic/Immunocompromised: denies: Difficulty Healing, Frequent Infections, Hives, Itching, others Hematologic/Lymphatic: denies: anemia, blood clots, easy bleeding, easy bruising, swollen glands, others Endocrine: denies: excessive hunger, excessive sweating, excessive thirst, excessive urination, flushing, intolerance to cold, intolerance to heat, unexplained weight gain, unexplained weight loss, others Psychiatric: denies: anxiety, bipolar disorder, depression, hopeless, panic disorder, schizophrenia, sleepless, suicidal, others All Other Systems: Reviewed and Negative Physical Exam General Appearance: Moderate Distress (Due to right-sided lower abdominal pain concerns.), Normal HEENT: Normal ENT Inspection, Pharynx Normal, TMs Normal Neck: Full Range of Motion, Non-Tender, Normal, Normal Inspection Respiratory: Chest Non-Tender, Lungs Clear, No Accessory Muscle Use, No Respiratory Distress, Normal Breath Sounds Cardiovascular: No Edema, No JVD, No Murmur, No Gallop, Normal Peripheral Pulses, Regular Rate/Rhythm Breast Exam: Deferred Gastrointestinal: Other (Nonspecific tenderness to palpation noted throughout the right lower quadrant. No pulsatile masses. Abdomen was reasonably soft.) Genitalia: Deferred Pelvic: Deferred Rectal: Deferred Extremities: No calf tenderness, Normal capillary refill, Normal inspection, Normal range of motion, Non-tender, No pedal edema Neurologic: Alert, No Motor Deficits, Normal Affect, Normal Mood, No Sensory Deficits Cerebellar Function: Normal Reflexes: Normal Skin: Dry, Normal Color, Warm Lymphatic: No Adenopathy Was a procedure done? Was a procedure done?: No Differential Diagnosis Kidney stone (Female): Urolithiasis Urinary Problem (Female): UTI, Other (Occlusive kidney stone, abdominal pain) X-Ray, Labs, Meds, VS Vital Signs Date Time Temp Pulse Resp B/P (MAP) Pulse Ox O2 Delivery O2 Flow Rate FiO2 12/14/24 20:48 98.2 74 16 135/91 (106) 98 98.2 12/14/24 20:48 98.2 74 16 135/91 (106) 98 98.2 12/14/24 20:48 74 16 98 Room Air* 0 21 Lab Test 12/14/24 00:00 Range/Units Urine Color Light-yellow Yellow Urine Clarity Clear Clear Urine pH 6.0 5.0-9.0 Urine Specific [place] 1.009 1.001-1.035 Urine Protein Negative Negative Urine Ketones Negative Negative Urine Blood Negative Negative /uL Urine Nitrite Negative Negative Urine Bilirubin Negative Negative Urine Urobilinogen Normal Negative mg/dL Urine Leukocyte Esterase Negative Negative /uL Urine RBC 1 0 - 4 /hpf Urine Microscopic WBC 2 0-5 /HPF Urine Squamous Epithelial Cells Few <5 /hpf Urine Bacteria Mod H None Seen /hpf Urine Glucose Normal Normal mg/dL Current Medications Medications (Trade) Dose Ordered Sig/Nadira Route Start Time Stop Time Status Last Admin Acetaminophen/ Hydrocodone Bitart ([place] 10/325MG Tab) 1 tab ONCE ONCE PO 12/14/24 20:45 12/14/24 20:46 DC 12/14/24 21:22 Ketorolac Tromethamine (Toradol Injection) 30 mg ONCE ONCE IM 12/14/24 20:45 12/14/24 20:46 DC 12/14/24 21:22 X-Ray, Labs, Meds, VS Comment All studies performed the ED were evaluated by me personally. Urinalysis was unremarkable for any UTI concerns. CT of the abdomen and pelvis was unremarkable for any intra abdominal concerns. Patient has an unknown cause of abdominal pain. Advised good hydration and healthy nutrition for the next few weeks. Time of 1ST Reevaluation: 21:54 Reevaluation 1ST: Unchanged Consultation: PCP Patient Education/Counseling: Diagnosis, Treatment, Prognosis Family Education/Counseling: Diagnosis, Treatment, No Family Present Departure 1 Departure Time of Disposition: 21:55 Impression: Primary Impression: Abdominal pain Disposition: 01 HOME / SELF CARE / HOMELESS Condition: Stable Additional Instructions: Advised good hydration and healthy nutrition for the next few weeks. If pain persist, patient will need to follow up with the primary care provider for c ontinued evaluation. e-Prescriptions Ondansetron Odt 4MG Tab (ZOFRAN PO) 4 Mg Tb 4 MG PO Q6HP PRN, #15 TAB ODT TAB-DISSOLVE IN MOUTH, THEN SWALLOW Prov: ARTHUR NUR PAC 12/14/24 Discharged With: Self, Friend Critical Care Note Critical Care Time?: No Stability Stability form required: No I personally scribed for ARTHUR NUR ([email or web address]) on 12/14/24 at 21:01. Electronically submitted by Nanda Mendoza ([facility]). ARTHUR NUR PAC Dec 14, 2024 21:01
[2024-12-14] MEDS: ONDANSETRON ODT 4 MG TAB PO ONE (21:22)
[2024-12-14] MEDS: HYDROcodone-ACET 10/325MG TAB PO ONE (21:22)
[2024-12-14] MEDS: KETOROLAC TROMETH 60MG/2ML VIAL IM ONE (21:22)
--- NOTE | 2024-12-14 21:30 | DVH ---
Exam: CT CT AB PEL WO CON-NO ORAL OR IV History: Right sided abdominal pain Comparison Study: ECID on DOS: 08/25/22 TECHNIQUE: Multidetector CT of the abdomen and pelvis was performed from lung bases to pubic symphysi s. Imaging was performed without IV contrast. Axial, coronal, and sagittal multiplanar reformats were obtained from the axial data set by the technologist. RADIATION DOSE: DLP 369.4 mGy.cm; CTDI vol 5.81 mGy. Findings: Lungs: The lung bases are clear. Heart: No cardiomegaly or pericardial effusion. Liver: Unremarkable. Gallbladder: Unremarkable. Spleen: Unremarkable Pancreas: Unremarkable Adrenals: Unremarkable Kidneys: Unremarkable GI tract: Unremarkable : Unremarkable. Vasculature: Unremarkable Lymphadenopathy: Absent Peritoneum: No ascites Musculoskeletal: Unremarkable Soft tissues: Unremarkable Impression: 1. No acute abdominopelvic abnormalities.
[2024-12-14 21:49] LABS: Urine Bacteria MOD /hpf (None Seen); Urine Blood Negative /uL (Negative); Urine Clarity Clear (Clear); Urine Color Light-Yellow (Yellow); Urine Protein, UAD Negative (Negative); Urine Specific Gravity 1.009 (1.001-1.035); Urine Squamous Epithelial Cell FEW /hpf (<5); Urine Urobilinogen Normal (Negative); Urine WBC 2 /HPF (0-5)
[2024-12-14] MEDS ORDERED: ZOFR4T PO (21:55)
[2024-12-14] MEDS ORDERED: CIPR-173 PO (22:49)
== END 2024-12-14 22:30 | disposition home or self-care (01) ==
LOC: EEVIPCON 20:36 → ER 20:36
DX: R10.2 Pelvic and perineal pain (principal); Z88.0 Allergy status to penicillin
CPT/HCPCS: 74176; 81001; 96372; 99285; J1885